=== PATIENT | female | born 1975 | race Caucasian/White ===

== ENCOUNTER 2022-09-17 08:12 | Outpatient (OUT) | payer OTHER, SELFPAY ==
--- NOTE | 2022-09-17 08:57 | XR_ITS ---
The [address] [address] Patient Name: YUMIKO MARCH MRN: [id number] date: 1975 Sex: F Assigned Patient Location: [facility] Current Patient Location: [facility] Accession/Order Number: [id number] Exam Date: 09/17/2022 09:20 Report Date: 09/17/2022 10:27 At the request of: MITRA VALDIVIA Procedure: XR chest 2V EXAM: XR chest 2V HISTORY: CAD, HISTORY OF [place] COMPARISON: None. TECHNIQUE: PA and lateral views of the chest. FINDINGS: The cardiomediastinal silhouette is normal. No focal consolidation is identified. There is no pneumothorax. No pleural effusion is noted. The osseous structures are intact. IMPRESSION: No acute cardiopulmonary process. Electronically authenticated by: BRAYDEN GRIFFITH Date: 09/17/2022 10:27
[2022-09-17 09:24] LABS: Basophils Absolute Auto 0.1 10^3/uL (0.0-0.1); Basophils Percent Auto 0.6 % (0.2-2.0); Eosinophils Absolute Auto 0.2 10^3/uL (0.0-0.7); Hematocrit 40.4 % (36.0-48.0); Hemoglobin 12.9 g/dL (12.0-16.0); Immature Granulocytes Abs Auto 0.03 10^3/uL (0.00-0.03); Immature Granulocytes Pct Auto 0.4 % (0.0-0.5); Lymphocytes Absolute Auto 1.5 10^3/uL (1.2-3.8); Lymphocytes Percent Auto 18.8 % (20.5-60.0); Mean Corpuscular HGB Conc 31.9 g/dL (29.9-35.2); Mean Corpuscular Hemoglobin 26.8 pg (26.7-34.0); Mean Corpuscular Volume 83.8 fL (81.0-99.0); Mean Platelet Volume 9.9 fL (9.5-13.5); Monocytes Absolute Auto 0.7 10^3/uL (0.3-0.8); Monocytes Percent Auto 8.9 % (1.7-12.0); Neutrophils Absolute Auto 5.5 10^3/uL (1.4-6.5); Neutrophils Percent Auto 69.3 % (43.0-75.0); Platelet Count 275 10^3/uL (150-450); Red Blood Count 4.82 10^6/uL (4.20-5.40); Red Cell Distribution Width 13.5 % (11.0-15.0)
[2022-09-17 09:31] LABS: Anion Gap 10.2; BUN Creatinine Ratio 28.6; Calcium 9.3 mg/dL (8.5-10.1); Carbon Dioxide 29.3 mmol/L (21.0-32.0); Chloride 103 mmol/L (98-107); Estimated GFR (African America >60 (>=60); Estimated GFR (Non-African Ame >60 (>=60); Glucose 89 mg/dL (74-106); Potassium 4.5 mmol/L (3.5-5.1); Sodium 138 mmol/L (136-145)
[2022-09-17 09:39] LABS: INR 0.97; Partial Thromboplastin Time 27.9 sec (22.3-36.2); Prothrombin Time 10.3 sec (9.0-11.6)
== END 2022-09-17 08:13 ==
PROVIDERS: Obstetrics & Gynecology; PCP Family Medicine
DX: Z01.812 Encounter for preprocedural laboratory examination (principal); Z01.811 Encounter for preprocedural respiratory examination; R87.611 Atypical squamous cells cannot exclude high grade squamous intraepithelial lesion on cytologic smear of cervix (ASC-H); R87.619 Unspecified abnormal cytological findings in specimens from cervix uteri; I25.10 Atherosclerotic heart disease of native coronary artery without angina pectoris; I25.2 Old myocardial infarction
CPT/HCPCS: 36415; 71046; 80048; 85025; 85610; 85730

== ENCOUNTER 2022-09-25 07:53 | Day surgery (SDC) | payer OTHER, SELFPAY ==
[2022-09-17 08:52] VITALS: BP 112/76; PULSE 64; RESP 14; TEMP 36.4; O2SAT 100; BMI 24.4
[2022-09-25] VITALS (8 sets, daily range): BP systolic 104–130; BP diastolic 53–88; PULSE 48–64; RESP 12–16; TEMP 36.1–36.3; O2SAT 96–100; BMI 23.9
[2022-09-25 08:05] LABS: Basophils Absolute Auto 0.1 10^3/uL (0.0-0.1); Basophils Percent Auto 0.7 % (0.2-2.0); Eosinophils Absolute Auto 0.2 10^3/uL (0.0-0.7); Eosinophils Percent Auto 3.4 % (0.9-7.0); Hematocrit 39.2 % (36.0-48.0); Hemoglobin 12.6 g/dL (12.0-16.0); Immature Granulocytes Abs Auto 0.02 10^3/uL (0.00-0.03); Immature Granulocytes Pct Auto 0.3 % (0.0-0.5); Lymphocytes Absolute Auto 1.6 10^3/uL (1.2-3.8); Lymphocytes Percent Auto 22.5 % (20.5-60.0); Mean Corpuscular HGB Conc 32.1 g/dL (29.9-35.2); Mean Corpuscular Volume 83.9 fL (81.0-99.0); Mean Platelet Volume 9.5 fL (9.5-13.5); Monocytes Absolute Auto 0.7 10^3/uL (0.3-0.8); Neutrophils Absolute Auto 4.4 10^3/uL (1.4-6.5); Neutrophils Percent Auto 63.1 % (43.0-75.0); Platelet Count 273 10^3/uL (150-450); Red Blood Count 4.67 10^6/uL (4.20-5.40); Red Cell Distribution Width 13.2 % (11.0-15.0)
[2022-09-25 08:38] LABS: HCG Quantitative <1 mIU/mL
[2022-09-25] MEDS: LACTATED RINGER'S SOLUTION 1,000 ML 50 ML IV (08:57)
[2022-09-25] MEDS: IODINE/POTASSIUM IODIDE 8 ML SOLUTION TOPICAL (11:06)
[2022-09-25] MEDS: FERRIC SUBSULFATE 8 ML SOLUTION TOPICAL (11:39)
--- NOTE | 2022-09-25 13:41 | OP_ITS ---
OPERATION DATE: ??09/25/2022 PROCEDURE:? LEEP procedure with top hat. PREOPERATIVE DIAGNOSIS:? High grade cervical dysplasia. POSTOPERATIVE DIAGNOSIS:? High grade cervical dysplasia. ANESTHESIA:? General. SURGEON:? Ronny Perez D.O. SETUP TECHNICIAN:? None. BLOOD LOSS:? 5 mL. URINE OUTPUT:? Yellow and clear. SPECIMEN:? Endo and ectocervical tissue. FINDINGS:? Dysplasia at the 3, 6, 9 and 10 o?clock positions. PROCEDURE:? Patient was taken back to the Operating Room where she was given general anesthesia without difficulty. She was then placed in the dorsal lithotomy position. She was then prepped and draped in the normal sterile fashion. A weighted speculum was placed into the patient's vagina. The anterior lip of the cervix was identified and grasped with a single-tooth tenaculum. The patient's cervix was then copiously irrigated using vinegar.? Then, a Lugol Solution was also placed onto the patient's cervix which demonstrated increased uptake of the Lugol solution at the 3, 6, 9 and 10 o?clock positions.? At that time, the LEEP portion of the procedure was performed, including both the 3, 6, 9 and 10 o?clock positions. The ectocervix was sent out to Pathology. Top hat was performed and the endocervical tissue was also sent to pathology. The patient's cervix was then coagulated using suction cautery. Excellent hemostasis was assured.? Monsel Solution was then placed onto the patient's cervix to help maintain adequate hemostasis. All instruments were removed from the patient's vagina. The anterior lip of the cervix demonstrated excellent hemostasis.? The patient tolerated the procedure well. Sponge, lap, and needle counts were correct x 2. The patient was taken to Recovery Room in stable condition.? Please note:? Top hat was performed.? MTDD
== END 2022-09-25 12:28 | disposition home or self-care (01) ==
PROVIDERS: PCP Family Medicine; Visit Provider Obstetrics & Gynecology
PROC: (CPT 57522; principal; 2022-09-25 09:40)
DX: D06.7 Carcinoma in situ of other parts of cervix (principal); Z79.82 Long term (current) use of aspirin; Z79.899 Other long term (current) drug therapy; I25.2 Old myocardial infarction; F17.210 Nicotine dependence, cigarettes, uncomplicated
CPT/HCPCS: 57522; 36415; 84702; 85025; 88307; 88341; 88342; J2704

== ENCOUNTER 2023-04-06 20:33 | Outpatient (REF) | payer OTHER, SELFPAY ==
[2023-04-09 13:09] LABS: Age Gdln ACOG Testing Note (.); HPV Aptima Negative (Negative); IGP, Aptima HPV, rfx 16/18,45 Note (.)
== END 2023-04-06 20:34 | disposition home or self-care (01) ==
LOC: LAB 20:33
PROVIDERS: PCP Family Medicine; Visit Provider Obstetrics & Gynecology
DX: R87.610 Atypical squamous cells of undetermined significance on cytologic smear of cervix (ASC-US) (principal)
CPT/HCPCS: 87624; G0145

== ENCOUNTER 2023-07-02 09:51 | Outpatient (OUT) | payer OTHER, SELFPAY ==
--- OUTSIDE RECORDS SUMMARY | 2023-07-02 09:55 | XMS_ITS | CCD ---
Author Organization [facility] Care Team Providers Care Public Address Technician Name Role Phone Maureen De Jesus MD Primary Care Provider FRANTZ MCLAIN Attending Unavailable MITRA PEREZ Attending Unavailable Maureen De Jesus MD Primary Care Provider [phone] KATE AMARAL Attending Unavailable MAUREEN DE JESUS Referring Unavailable MAUREEN DE JESUS Primary Care Unavailable Medications Current Medications Medication Drug Class(es) Dates Sig (Normalized) Sig (Original) aspirin 81 mg delayed release oral tablet (5 sources) Platelet Aggregation Inhibitor, Nonsteroidal Anti-inflammatory Drug take 1 tablet by mouth in the morning aspirin 81 mg Take 1 tablet (81 mg total) by mouth in the morning. 0 Active aspirin 81 MG ch ewable tablet 1 (one) time each day at the same time 0 Active atorvastatin 10 mg oral tablet (6 sources) HMG-CoA Reductase Inhibitor Start: 12-18-2022 take 1 tablet by mouth every other day atorvastatin (LIPITOR) 10 mg tablet Indications: Coronary artery disease involving [place] coronary artery of [place] heart without angina pectoris Take 1 tablet (10 mg total) by mouth every other day. 45 tablet 2 12/18/2022 Active B-complex with vitamin C tablet (3 sources) take 1 tablet by mouth in the morning B-complex with vitamin C tablet Take 1 tablet by mouth in the morning. 0 Active cholecalciferol 0.025 mg oral tablet (6 sources) Vitamin D take 1 tablet by mouth in the morning cholecalciferol, vitamin D3, (VITAMIN D3) 1,000 units tablet Take 1 tablet (1,000 Units total) by mouth in the morning. 0 Active glucosamine HCl/chondroitin lyle (GLUCOSAMINE-CHONDROIT IN ORAL) (3 sources) take 1 tablet by mouth in the morning glucosamine HCl/chondroitin lyle (GLUCOSAMINE-CHOND ROITIN ORAL) Take 1 tablet by mouth in the morning and 1 tablet before bedtime. 0 Active gotdq-bj-0-dha-epa-lashanda spho-ast 734-02-05-50 mg capsule (3 sources) take 3 capsules by mouth once daily rxvci-ca-9-dha-epa -phospho-ast 918-01-71-50 mg capsule Take by mouth daily. 0 Active 24 hr metoprolol succinate 25 mg extended release oral tablet (7 sources) beta-Adrenergic Javid Start: 06-16-2022 End: 05-25-2023 take 1 tablet by mouth once daily metoprolol succinate XL (TOPROL XL) 25 mg 24 hr tablet Take 1 tablet by mouth once daily 90 tablet 0 05/25/2023 Active take 1 tablet by faheem th every twenty-four hours in the morning metoprolol succinate XL (Toprol-XL) 25 M G 24 hr tablet Take 25 mg by mouth in the morning. 0 Active nitroglycerin 0.4 mg sublingual tablet (3 sources) Nitrate Vasodilator nitroglyceri n (NITROSTAT) 0.[address] 1 tablet (0.4 mg total) under the tongue every 5 (five) minutes as needed for chest pain. 0 Active vitamin e d-alpha 400 unt oral capsule (3 sources) take 1 capsule by mouth once daily alpha tocopherol (Vitamin E) 400 units capsule Take 400 Units by mouth 1 (one) time each day at the same time. 0 Active Zinc (3 sources) take 1 tablet by mouth in the morning ZINC ORAL Take 1 tablet by mouth in the morning. 0 Active Problems Active Problems Problem Classification Problem Date Documented Date Episodic/Chronic Acute myocardial infarction (5 sources) Myocardial infarction; Translations: [Non-ST elevation (NSTEMI) myocardial infarction] Onset: 09-18-2016 05-24-2023 Chronic Anxiety disorders (2 sources) Anxiety; Translations: [Anxiety disorder, unspecified] Onset: 05-24-2023 05-24-2023 Chronic Cancer of cervix (2 sources) Carcinoma in situ of uterine cervix; Translations: [Carcinoma in situ of cervix, unspecified] Onset: 05-24-2023 05-24-2023 Episodic Complication of device; implant or graft (2 sources) Arteriosclerosis of coronary artery bypass graft; Translations: [Atherosclerosis of coronary artery bypass graft(s), unspecified, with unspecified angina pectoris] Onset: 05-24-2023 05-24-2023 Chronic Coronary atherosclerosis and other heart disease (6 sources) Coronary atherosclerosis; Translations: [Atherosclerotic heart disease of [place] coronary artery with unspecified angina pectoris] Onset: 02-23-2019 02-23-2019 Chronic Disorders of lipid metabolism (8 sources) Hyperlipidemia; Translations: [Other hyperlipidemia] Onset: 11-19-2016 05-24-2023 Chronic Other upper respiratory infections (2 sources) Viral upper respiratory tract infection; Translations: [Acute upper respiratory infection, unspecified] 05-24-2023 Episodic Viral infection (2 sources) Condyloma acuminatum of the anogenital region; Translations: [Anogenital (venereal) warts] Onset: 05-24-2023 05-24-2023 Episodic Past or Other Problems Problem Classification Problem Date Documented Da te Episodic/Chronic Nonspecific chest pain (3 sources) Chest pain; Translations: [Chest pain, unspecified] Onset: 09-18-2016 Resolved: 02-23-2019 02-23-2019 Episodic Other screening for suspected conditions (not mental disorders or infectious disease) (5 sources) Mammography abnormal; Translations: [Other abnormal and inconclusive findings on diagnostic imaging of breast] Onset: 09-15-2016 Resolved: 02-23-2019 05-24-2023 Episodic Substance-related disorders (3 sources) Nicotine dependence; Translations: [Nicotine dependence, cigarettes, uncomplicated] Onset: 09-24-2016 Resolved: 02-23-2019 02-23-2019 Chronic Results Test Name Value Interpretation Reference Range Facil ity PO[facility] W/KERA, BILATERAL*on 06-08-2022 SCREENING MAMMOGRAM W/KERA, BILATERAL* COMPARISON: Dating back to February 04, 2021, May 14 and 2020. TECHNIQUE: 2D and 3D Tomosynthesis of the right and left breasts was performed. FINDINGS: Breast composition demonstrates heterogeneously dense parenchyma. Typically benign calcifications. Bilateral periareolar biopsy clips. No suspicious microcalcifications, dominant mass lesions, or distortion is present. IMPRESSION: BI-RADS 2- Benign Mammogram Board Certified Radiologist. Accredited by the ACR and FDA. MAMMOGRAPHY IS VERY IMPORTANT TO YOUR HEALTH. THE CURRENT [place] [employer] GUIDELINES RECOMMENDS ANNUAL MAMMOGRAPHY BEGINNING AT AGE 39 THIS FACILITY USES A REMINDER SYSTEM TO ENSURE ALL PATIENTS RECEIVE REMINDER NOTIFICATIONS AT THE APPROPRIATE TIME BASED ON THE RECOMMENDATIONS OF THIS EXAM. Report reported and signed by Stuart Rivera on 06/12/2022 1406 Normal [facility] Oxygen Plant Operator Vital Signs Date Time Vital Sign Value Performing Clinician Facility 06-29-2023 11:01-0400 Body height 167.6 cm Kate Amaral APRN-SAFETY GLASS INSTALLER Work Phone: [facility] 06-29-2023 11:01-0400 Body mass index (BMI) [Ratio] 23.4 kg/m2 Katerodrigo Amaral SYSTEMS ANALYST ENGINEER-SAFETY GLASS INSTALLER Work Phone: [facility] 06-29-2023 11:01-0400 Body weight 65.77 kg Kate Amaral SYSTEMS ANALYST ENGINEER-SAFETY GLASS INSTALLER Work Phone: [facility] 06-29-2023 11:01-0400 Diastolic blood pressure 68 mm[Hg] Kate Amaral APRN-SAFETY GLASS INSTALLER Work Phone: [facility] 06-29-2023 11:01-0400 Heart rate 65 /min Katerodrigo Amaral SYSTEMS ANALYST ENGINEER-SAFETY GLASS INSTALLER Work Phone: [facility] 06-29-2023 11:01-0400 SaO2% (BldA) [Mass fraction] 100 % Kate Amaral SYSTEMS ANALYST ENGINEER-SAFETY GLASS INSTALLER Work Phone: [facility] 06-29-2023 11:01-0400 Systolic blood pressure 100 mm[Hg] Kate Amaral APRN-SAFETY GLASS INSTALLER Work Phone: [facility] 05-24-2023 13:10-0500 Body height 167.6 cm Frantz Mclain HAND CUTTER Work Phone: [facility] 05-24-2023 13:10-0500 Body mass index (BMI) [Ratio] 22.92 kg/m2 Frantz Mclain HAND CUTTER Work Phone: [facility] 05-24-2023 13:10-0500 Body temperature 98.49 [degF] Frantz Mclain HAND CUTTER Work Phone: [facility] 05-24-2023 13:10-0500 Body weight 64.41 kg Frantz Mclain HAND CUTTER Work Phone: [facility] 05-24-2023 13:10-0500 Diastolic blood pressure 70 mm[Hg] Frantz Mclain HAND CUTTER Work Phone: [facility] 05-24-2023 13:10-0500 Heart rate 78 /min Frantz Mclain HAND CUTTER Work Phone: [facility] 05-24-2023 13:10-0500 SaO2% (BldA) [Mass fraction] 99 % Frantz Mclain HAND CUTTER Work Phone: [facility] 05-24-2023 13:10-0500 Systolic blood pressure 110 mm[Hg] Frantz Mclain HAND CUTTER Work Phone: [facility] Healthcare Encounters Encounter Date Encounter Type Care Provider Facility Start: 06-29-2023 End: 06-29-2023 ambulatory [facility] Start: 06-29-2023 End: 06-29-2023 Office outpatient visit 25 minutes [facility] SYSTEMS ANALYST ENGINEER-SAFETY GLASS INSTALLER Work Phone: [facility] Comment on above: Atherosclerosis of n ative coronary artery of [place] heart with angina pectoris ([facility]) (Primary Dx); Mixed hyperlipidemia Start: 06-28-2023 Telephone encounter Izzy Galvez MA [facility] Comment on above: Appointment Start: 05-24-2023 End: 05-24-2023 ambulatory FRANTZ MCLAIN Not Available Start: 05-24-2023 Bamboo flowsheet Frantz Mclain HAND CUTTER Work Phone: [facility] Start: 05-24-2023 Bamboo flowsheet Frantz Mclain HAND CUTTER Work Phone: [facility] Start: 05-24-2023 Refill Rosy lopez SYSTEMS ANALYST ENGINEER-SAFETY GLASS INSTALLER Work Phone: [facility] Comment on above: Med Refill Start: 05-24-2023 End: 05-24-2023 Office outpatient visit 15 minutes Frantz Mclain HAND CUTTER Work Phone: [facility] Comment on above: Viral URI (Primary D x) Start: 04-06-2023 End: 04-06-2023 ambulatory MITRA PEREZ Not Available Procedures Date Procedure Procedure Detail Performing Clinician Start: 06-29-2023 Ecg routine ecg w/le ast 12 lds w/i&r Kate Amaral SYSTEMS ANALYST ENGINEER-SAFETY GLASS INSTALLER Work Phone: Start: 06-29-2023 Follow-up visit Follow-up KATE AMARAL Start: 02-02-2023 Microscopic observat ion [Identifier] in Cervix by Cyto stain Frantz Mclain HAND CUTTER Work Phone: Start: 06-08-2022 Mammography Frantz Petrona barry HAND CUTTER Work Phone: Plan of Treatment Date Care Activity Detail Author Start: 02-28-2030 DTaP,Tdap and Td Vaccines (8 - Td or Tdap) DTaP,Tdap and Td Vaccines (8 - Td or Tdap) [facility] Start: 02-03-2028 Screening for malignant neoplasm of cervix [facility] Start: 02-02-2026 Screening for malignant neoplasm of cervix Pap Smear [facility] Start: 06-28-2024 Adult BMI Screening Adult BMI Screen ing [facility] Start: 06-28-2024 Tobacco Screening Tobacco Screening [facility] Start: 09-29-2023 End: 06-28-2024 Lipid panel Lipid panel Lab Routine Atherosclerosis of [place] coronary artery of [place] heart with angina pectoris ([facility]) Mixed hyperlipidemia Expected: 09/29/2023 (Approximate), Expires: 06/28/2024 [employer] Work Phone: Comment on above: Expected: 09/29/2023 (Approximate), Expires: 06/28/2024 Start: 06-29-2023 End: 06-29-2023 Patient encounter procedure 06/29/2023 11:00 AM EDT Office Visit [facility] [address] [place] [address] [address] [place] [address] Kate Amaral, SYSTEMS ANALYST ENGINEER-SAFETY GLASS INSTALLER [address] [place] [address] [facility] Start: 06-17-2023 Adult BMI Screening Adult BMI Screen ing [facility] Start: 06-17-2023 Tobacco Screening Tobacco Screening [facility] Start: 06-15-2023 End: 06-15-2023 Patient encounter procedure 06/15/2023 8:40 AM EST Consult [facility] [address] [place] [id number] Mitra Perez, DO [address] [place] [address] [facility] Start: 06-08-2023 Screening for malignant neoplasm of breast Mammogram [facility] Start: 05-24-2023 End: 05-24-2023 Patient encounter procedure 05/24/2023 1:30 PM EST Office Visit [facility] [address] [place] [phone] Frantz Mclain NP [address] [place] [address] Arrived [facility] Comment on above: Arrived Start: 12-11-2022 COVID-19 Vaccine ( season) COVID-19 Vaccine ( season) [facility] Start: 12-11-2022 Influenza vaccination Influenza Vacc ine [facility] Start: 1995 Screening for malignant neoplasm of cervix Pap Smear [facility] Start: 1986 Depression Screening Depression Scre ening [facility] Start: 1974 Screening for malignant neoplasm of colon [facility] Immunizations Immunization Date Immunization Notes Care Provider Fa cility 04-16-2023 zoster vaccine recombinant Frantz Mclain HAND CUTTER Work Phone: [facility] 01-17-2023 Pneumococcal Conjuga te PCV 20 Frantz Mclain HAND CUTTER Work Phone: [facility] 01-17-2023 zoster vaccine recombinant Frantz Mclain HAND CUTTER Work Phone: [facility] 12-11-2022 influenza, injectabl e, quadrivalent, preservative free Frantz Kampfer HAND CUTTER Work Phone: [facility] 01-30-2022 influenza, injectabl e, quadrivalent, contains preservative Frantz Kampfer HAND CUTTER Work Phone: [facility] 01-30-2022 influenza virus vaccine, unspecified formulation Rosy Servin SYSTEMS ANALYST ENGINEER-SAFETY GLASS INSTALLER Work Phone: [facility] 01-05-2021 influenza, injectabl e, quadrivalent, preservative free Frantz Kampfer HAND CUTTER Work Phone: [facility] 02-29-2020 tetanus toxoid, redu bassam diphtheria toxoid, and acellular pertussis vaccine, adsorbed Frantz Kampfer HAND CUTTER Work Phone: [facility] 01-25-2020 influenza, injectabl e, quadrivalent, preservative free Frantz Kampfer HAND CUTTER Work Phone: [facility] 02-03-2019 influenza, injectabl e, quadrivalent, contains preservative Frantz Kampfer HAND CUTTER Work Phone: [facility] 01-20-2012 tetanus toxoid, redu bassam diphtheria toxoid, and acellular pertussis vaccine, adsorbed Frantz Kampfer HAND CUTTER Work Phone: [facility] 11-19-2006 hepatitis B vaccine, adult dosage Frantz Kampfer HAND CUTTER Work Phone: [facility] 09-21-2006 hepatitis B vaccine, adult dosage Frantz Kampfer HAND CUTTER Work Phone: [facility] 07-29-2006 hepatitis B vaccine, adult dosage Frantz Kampfer HAND CUTTER Work Phone: [facility] 07-29-2006 measles, mumps and rubella virus vaccine Frantz Kampfer HAND CUTTER Work Phone: [facility] 07-29-2006 tetanus toxoid, adsorbed Frantz Kampfer HAND CUTTER Work Phone: [facility] 12-21-1978 diphtheria, tetanus toxoids and acellular pertussis vaccine, unspecified formulation Frantz Kampfer HAND CUTTER Work Phone: [facility] 10-23-1975 diphtheria, tetanus toxoids and acellular pertussis vaccine, unspecified formulation Frantz Kampfer HAND CUTTER Work Phone: [facility] 10-23-1975 measles and rubella virus vaccine Frantz Kampfer HAND CUTTER Work Phone: [facility] 10-23-1975 poliovirus vaccine, unspecified formulation Frantz Kampfer HAND CUTTER Work Phone: [facility] 05-21-1975 diphtheria, tetanus toxoids and acellular pertussis vaccine, unspecified formulation Frantz Kampfer HAND CUTTER Work Phone: [facility] 05-21-1975 poliovirus vaccine, unspecified formulation Frantz Kampfer HAND CUTTER Work Phone: [facility] 1974 diphtheria, tetanus toxoids and acellular pertussis vaccine, unspecified formulation Frantz Kampfer HAND CUTTER Work Phone: [facility] 1974 poliovirus vaccine, unspecified formulation Frantz Kampfer HAND CUTTER Work Phone: [facility] 1974 diphtheria, tetanus toxoids and acellular pertussis vaccine, unspecified formulation Frantz Kampfer HAND CUTTER Work Phone: [facility] 1974 poliovirus vaccine, unspecified formulation Frantzcarlos Slaterpfer HAND CUTTER Work Phone: [facility] Payers Date Payer Category Payer Managed Care HMO (unspecified) [employer] HMO [employer] HMO [id number] 2020-Present [address] [place] [address] HMO [id number] 2019 Unknown [id number] 2019 Unknown [employer] HMO/FLEX/EMPLOYER SELECT [id number] 2019-Present [phone] [address] [place] [address] [id number] 1974 Unknown [id number] 1974 Unknown [id number] 1974 Unknown [id number] Social History Date Type Detail Facility Start: 06-16-2022 End: 02-01-2023 Tobacco smoking status NHIS Ex-smoker [facility] History of tobacco use Current smoker [facility] History of tobacco use Cigarette Smoker [facility] Start: 06-16-2022 End: 02-01-2023 Tobacco use and exposure Smokeless tobacco non-user [facility] Start: 05-06-2023 End: 05-24-2023 Alcohol intake Lifetime non-drinker (finding) [facility] Start: 04-23-2020 End: 04-06-2023 History of Social function [facility] Start: 04-23-2020 End: 04-06-2023 Tobacco use panel [facility] Start: 02-01-2023 Alcohol Comment caffeine: 2-3 cups per day coffee, soda [facility] Start: 1975 Sex Assigned At Not on file N [facility] Start: 06-16-2022 End: 06-29-2023 Alcohol intake Current non-drinker of alcohol (finding) [facility] Childcare Unknown [facility] Clinical Notes 05-24-2023 to 06-29-2023 Kate Amaral, [facility] - 06/29/2023 11:00 AM EDTTelephone Encounter - Izzy Bradford, [facility] - 06/28/2023 11:57 AM EDTTelephone Encounter - Izzy Bradford [facility] - 06/28/2023 11:57 AM EDT Note Date & Type Note Facility 06-29-2023 History of Presen t illness Narrative Yumiko March Date of visit: 06/29/2023 Date of : 1975 Age: 48 y.o. Patient Active Problem List Diagnosis Atherosclerotic heart disease of [place] coronary artery with angina pectoris (CMS-HCC) Mixed hyperlipidemia Non-ST elevation (NSTEMI) myocardial infarction (CMS-HCC) No Known Allergies Current Outpatient Medications Medication Sig Dispense Refill aspirin 81 mg Take 1 tablet (81 mg total) by mouth in the morning. atorvastatin (LIPITOR) 10 mg tablet Take 1 tablet (10 mg total) by mouth every other day. 45 tablet 2 B-complex with vitamin C tablet Take 1 tablet by mouth in the morning. cholecalciferol, vitamin D3, (VITAMIN D3) 1,000 units tablet Take 1 tablet (1,000 Units total) by mouth in the morning. glucosamine HCl/chondroitin lyle (GLUCOSAMINE-CHONDROITIN ORAL) Take 1 tablet by mouth in the morning and 1 tablet before bedtime. fscpk-bb-0-boa-jrk-uhrmzez-ast 314-17-83-50 mg capsule Take by mouth daily. metoprolol succinate XL (TOPROL XL) 25 mg 24 hr tablet Take 1 tablet by mouth once daily 90 tablet 0 nitroglycerin (NITROSTAT) 0.[address] 1 tablet (0.4 mg total) under the tongue every 5 (five) minutes as needed for chest pain. ZINC ORAL Take 1 tablet by mouth in the morning. No current facility-administered medications for this visit. Chief Complaint Patient presents with Follow-up Coronary Artery Disease Hyperlipidemia History of Present Illness 48-year-old female presents today for annual visit. Last seen on 06/16. Note from previous encounter reviewed. He was history of NSTEMI, single-vessel ASCVD with occluded distal LAD 2016, hyperlipidemia. Last lipid panel from September of 2022 with LDL of 28. At today's visit she needs preoperative clearance for hysterectomy. She has no new anginal complaints. No chest pains, shortness of breath, lightheadedness, dizziness, syncope, presyncope. EKG in office today unchanged from previous study. Nonischemic. 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 Easily she is greater than 4 METS activity. Tolerating her medications. Past Medical History: Diagnosis Date CAD (coronary artery disease) No data recorded No data recorded No data recorded Past Surgical History: Procedure Laterality Date BREAST BIOPSY Right 06/05/2020 stereotactic BREAST BIOPSY Left 06/05/2020 stereotactic CARDIAC CATHETERIZATION 2016 TONSILLECTOMY TUBAL LIGATION Family History Problem Relation Age of Onset Hypertension Mother Hypertension Father Heart attack Father Breast cancer Neg Hx Social History Socioeconomic History Marital status: Spouse name: Not on file Number of children: Not on file Years of education: Not on file Highest education level: Not on file Occupational History Not on file Tobacco Use Smoking status: Former Packs/day: 0 Types: Cigarettes Smokeless tobacco: Never Vaping Use Vaping Use: Never used Substance and Sexual Activity Alcohol use: No Drug use: No Sexual activity: Yes Other Topics Concern Caffeine Use Yes Comment: a few cups a day Social History Narrative Not on file Social Determinants of Health Financial Resource Strain: Not on file Food Insecurity: No Food Insecurity (06/29/2023) Hunger Screening Food Insecurity - Worry: Never True Food Insecurity - Inability: Never True Transportation Needs: Not on file Physical Activity: Not on file Stress: Not on file Social Connections: Not on file Interpersonal Safety: Not on file Housing Instability: Not on file Review of Systems Review of Systems Constitutional: Negative for chills, fever, weight gain and weight loss. HENT: Negative for nosebleeds. Eyes: Negative for blurred vision and double vision. Vascular: Negative for asymmetric leg edema, claudication, lower extremity wounds or ulcers and varicose veins. Respiratory: Negative for cough, shortness of breath and wheezing. Hematologic/Lymphatic: Negative for bleeding problem. Does not bruise/bleed easily. Skin: Negative for color change and rash. Musculoskeletal: Negative for joint swelling and muscle weakness. Gastrointestinal: Negative for change in bowel habit and hematochezia. Genitourinary: Negative for hematuria. Neurological: Negative for dizziness, headaches, light-headedness, loss of balance, numbness and tremors. Psychiatric/Behavioral: The patient is not nervous/anxious. Allergic/Immunologic: Negative for environmental allergies. CARDIOVASCULAR: Please review HPI. Physical Examination General appearance: Alert, oriented and cooperative. In no acute distress. Skin: Warm and dry to touch. Neck: No JVD, No carotid bruit. Neck supple, trachea midline. Respiratory: Clear to auscultation bilaterally, no use of accessory muscles. Cardiovascular: RRR with normal S1 and S2 with no murmurs. Musculoskeletal: No peripheral edema. Neurologic: Oriented to time, person and place, affect appropriate. No focal/major motor defects noted. Psychiatric: Appropriate mood, memory and judgement. VITAL SIGNS: BP 100/68 (BP Site: Left Arm, BP Postition: Sitting, BP CUFF SIZE: M (9-13 inches)) Pulse 65 Ht 167.6 cm (5' 6 ) Wt 65.8 kg (145 lb) SpO2 100% BMI 23.40 kg/m No orders of the defined types were placed in this encounter. There are no discontinued medications. IMPRESSIONS/PLAN 1. Atherosclerosis of [place] coronary artery of [place] heart with angina pectoris ([facility]) - POCT EKG / nonischemic - Lipid panel; Future -preserved LVEF -no anginal complaints. Greater than 4 Mets activity. 2. Mixed hyperlipidemia - Lipid panel; Future -LDL well at goal from September of last year. Repeat lipid panel in September of this year 3. Preoperative clearance -fairly low risk for upcoming hysterectomy. Cleared. Can hold aspirin 5-7 days prior. Restart afterwards when cleared to do so Follow-up in 1 year. Seen today while Dr. Plummer was in the office and readily available TODAYS ORDERS Orders Placed This Encounter Procedures Lipid panel POCT EKG FOLLOW UP Return in about 1 year (around 06/28/2024) for Next scheduled follow up. PCP: Maureen De Jesus MD Referring Physician: Maureen De Jesus MD [address] [place] [address] FRANCINE Lacy 06/29/23 1123 documented in this encounter [facility] 06-28-2023 Miscellaneous Notes Formattin g of this note might be different from the original. Called patient to remind them to bring their most current copy of their medication list with them to their appt. Patient verbalizes understanding. documented in this encounter [facility] 06-28-2023 Telephone encount er Note Called patient to remind them to bring their most current copy of their medication list with them to their appt. Patient verbalizes understanding. [facility] 05-24-2023 History of Presen t illness Narrative Yumiko March is a 48 y.o. female presents with chief complaint of Sore Throat HPI: Sore Throat Patient complains of sore throat. Associated symptoms include dry cough, pain while swallowing, post nasal drip, sinus and nasal congestion, sneezing, sore throat, and swollen glands. Onset of symptoms was 4 days ago, and have been gradually worsening since that time. She is drinking plenty of fluids. She has had recent close exposure to someone with proven streptococcal pharyngitis. She is not taking anything OTC. Sore Throat SUBJECTIVE: MEDICATIONS: Current Outpatient Medications Medication Instructions alpha tocopherol (VITAMIN E) 400 Units, Oral, Every 24 hours atorvastatin (LIPITOR) 10 mg, Oral, Every other day cholecalciferol (VITAMIN D-3) 1,000 Units, Oral, Daily RT metoprolol succinate XL (TOPROL-XL) 25 mg, Oral, Daily REVIEW OF SYMPTOMS: Review of Systems HENT: Positive for sore throat. OBJECTIVE: Visit Vitals BP 110/70 (BP Location: Left arm, Patient Position: Sitting, BP Cuff Size: Adult) Pulse 78 Temp 98.5 F (Tympanic) Ht 5' 6 Wt 142 lb SpO2 99% BMI 22.92 kg/m OB Status Having periods Smoking Status Former BSA 1.73 m Physical Exam Vitals reviewed. Constitutional: Appearance: Normal appearance. HENT: Head: Normocephalic and atraumatic. Ears: Comments: B/L TM: dull Nose: Mucosal edema, congestion and rhinorrhea present. Rhinorrhea is clear. Mouth/Throat: Mouth: Mucous membranes are moist. Comments: PND Eyes: Pupils: Pupils are equal, round, and reactive to light. Cardiovascular: Rate and Rhythm: Normal rate and regular rhythm. Pulses: Normal pulses. Heart sounds: Normal heart sounds. Pulmonary: Effort: Pulmonary effort is normal. Breath sounds: Normal breath sounds. Musculoskeletal: Cervical back: Normal range of motion and neck supple. Lymphadenopathy: Cervical: No cervical adenopathy. Skin: General: Skin is warm and dry. Capillary Refill: Capillary refill takes less than 2 seconds. Findings: No rash. Neurological: General: No focal deficit present. Mental Status: She is alert and oriented to person, place, and time. ASSESSMENT AND PLAN: Assessment/Plan Diagnoses and all orders for this visit: Viral URI -Declines covid/flu testing. Viral in nature, will need to run its course. Educated patient viral infections such as colds/flus do not respond to abx and typically do not begin to improve until 7-10 days into the illness. Discussed symptomatic treatment with patient. Humidifier at bedside to moisten area. Push fluids. Rest. Good handwashing. Follow up if symptoms do not improve. To ER for markedly worsening symptoms. documented in this encounter [facility] 05-24-2023 Miscellaneous Notes Formattin g of this note might be different from the original. Please sign and route. Thank you CRISTAL 06/16/22 Pt will need annual appointment please. Letter mailed. documented in this encounter [facility] 05-24-2023 Telephone encount er Note Please sign and route. Thank you CRISTAL 06/16/22 Pt will need annual appointment please. Letter mailed. [facility] Evaluation note Diagnosis Viral URI- Primary Acute upper respiratory infections of unspecified site [facility] Diagnosis Atherosclerosis of [place] coronary artery of [place] heart with angina pectoris ([facility])- Primary Mixed hyperlipidemia documented in this encounter [facility] Network18 SystemInstructionsNot on filedocumented in this encounter [facility] Network18 SystemInstructionsNot on filedocumented in this encounter [facility] Network18 SystemInstructionsNot on filedocumented in this encounter [facility] Summary Purpose Family History No Family History Records FoundNo Family History Records FoundNo Family History Records Found Advance Directives No Advanced Directives Records FoundLatest Code Status on File Code Status Date Activated Date Inactivated Comments Full Code 09/15/2016 4:44 PM 09/16/2016 6:41 PM Additional Source Comments INFORMATION SOURCE (unrecogn ized section and content) DATE CREATED AUTHOR 06/13/2022 [facility] dical Specialist DATE CREATED AUTHOR AUTHOR'S ORGANIZ ATION 05/25/2023 [facility] dical Specialists EPIC DATE CREATED AUTHOR AUTHOR'S ORGANIZ ATION 06/30/2023 [facility] Care Teams (unrecognized sec tion and content) Public Address Technician Relationship Specialty Start Date End Date Maureen De Jesus MD [address] [place] [address] PCP - General Family Medicine 08/18/22 Public Address Technician Relationship Specialty Start Date End Date Maureen De Jesus MD [address] [place] [address] PCP - General Family Medicine 08/18/22 Public Address Technician Relationship Specialty Start Date End Date Maureen De Jesus MD [address] [place] [address] PCP - General Family Medicine 09/15/16 Public Address Technician Relationship Specialty Start Date End Date Maureen De Jesus MD [address] [place] [address] PCP - General Family Medicine 09/15/16 Reason for Visit (unrecogniz ed section and content) Reason Comments Sore Throat Reason Comments Med Refill Reason Onset Date Comments Appointment 06/28/2023 Reason Comments Follow-up Coronary Artery Disease Hyperlipidemia FOR RECORDS PERTAINING TO PATIENTS WHO ARE OR HAVE BEEN ENROLLED IN A CHEMICAL DEPENDENCY/SUBSTANCEABUSE PROGRAM, SOME INFORMATION MAY BE OMITTED. This clinical summary was aggregated from multiple sources. Caution should be exercised in using it in the provision of clinical care. This summary normalizes information from multiple sources, and as a consequence, information in this document may materially change the coding, format and clinical context of patient data. In addition, data may be omitted in some cases. CLINICAL DECISIONS SHOULD BE BASED ON THE PRIMARY CLINICAL RECORDS. [facility] [employer] [facility]. provides no warranty or guarantee of the accuracy or completeness of information in this document.
[2023-07-02 11:09] LABS: Alanine Aminotransferase 27 U/L (14-59); Albumin Globulin Ratio 1.2; Albumin Level 3.7 g/dL (3.4-5.0); Alkaline Phosphatase 73 U/L (46-116); Anion Gap 14.9; Aspartate Amino Transferase 16 U/L (15-37); BUN Creatinine Ratio 20.6; Bilirubin Direct 0.1 mg/dL (0.0-0.2); Bilirubin Total 0.5 mg/dL (0.2-1.0); Calcium 8.7 mg/dL (8.5-10.1); Carbon Dioxide 27.4 mmol/L (21.0-32.0); Chloride 103 mmol/L (98-107); Estimated GFR (African America >60 (>=60); Estimated GFR (Non-African Ame >60 (>=60); Globulin 3.2 g/dL; Glucose 87 mg/dL (74-106); Potassium 4.3 mmol/L (3.5-5.1); Sodium 141 mmol/L (136-145); Total Protein 6.9 g/dL (6.4-8.2)
[2023-07-02 11:16] LABS: Basophils Absolute Auto 0.1 10^3/uL (0.0-0.1); Basophils Percent Auto 0.6 % (0.2-2.0); Eosinophils Absolute Auto 0.1 10^3/uL (0.0-0.7); Eosinophils Percent Auto 1.1 % (0.9-7.0); Hematocrit 39.5 % (36.0-48.0); Hemoglobin 12.4 g/dL (12.0-16.0); Immature Granulocytes Abs Auto 0.03 10^3/uL (0.00-0.03); Immature Granulocytes Pct Auto 0.3 % (0.0-0.5); Lymphocytes Absolute Auto 1.7 10^3/uL (1.2-3.8); Lymphocytes Percent Auto 16.5 % (20.5-60.0); Mean Corpuscular HGB Conc 31.4 g/dL (29.9-35.2); Mean Corpuscular Hemoglobin 27.1 pg (26.7-34.0); Mean Corpuscular Volume 86.2 fL (81.0-99.0); Mean Platelet Volume 10.4 fL (9.5-13.5); Neutrophils Absolute Auto 7.6 10^3/uL (1.4-6.5); Neutrophils Percent Auto 72.5 % (43.0-75.0); Platelet Count 293 10^3/uL (150-450); Red Blood Count 4.58 10^6/uL (4.20-5.40); Red Cell Distribution Width 13.7 % (11.0-15.0); White Blood Count 10.5 10^3/uL (4.0-11.0)
[2023-07-02 11:34] LABS: INR 0.99; Partial Thromboplastin Time 29.1 sec (22.3-36.2); Prothrombin Time 10.5 sec (9.0-11.6)
== END 2023-07-02 09:52 | disposition home or self-care (01) ==
LOC: PST 09:52
PROVIDERS: PCP Family Medicine; Visit Provider Obstetrics & Gynecology
DX: Z01.812 Encounter for preprocedural laboratory examination (principal); N92.0 Excessive and frequent menstruation with regular cycle; R10.2 Pelvic and perineal pain; N94.6 Dysmenorrhea, unspecified; N94.10 Unspecified dyspareunia
CPT/HCPCS: 36415; 80048; 80076; 85025; 85610; 85730

== ENCOUNTER 2023-07-12 14:26 | Outpatient (OUT) | payer OTHER, SELFPAY | END 2023-07-12 14:27 | disposition home or self-care (01) | LOC: LAB 14:26 | PROVIDERS: PCP Family Medicine; Visit Provider Obstetrics & Gynecology | DX: Z01.812 Encounter for preprocedural laboratory examination (principal); N92.0 Excessive and frequent menstruation with regular cycle; R10.2 Pelvic and perineal pain; N94.6 Dysmenorrhea, unspecified; N94.10 Unspecified dyspareunia | CPT/HCPCS: 36415; 86850; 86900; 86901 ==

== ENCOUNTER 2023-07-15 11:13 | Day surgery (SDC) | payer OTHER, SELFPAY ==
[2023-07-02 10:24] VITALS: BP 105/65; PULSE 79; RESP 16; TEMP 36.2; O2SAT 100; BMI 23.4
[2023-07-15] VITALS (24 sets, daily range): BP systolic 106–133; BP diastolic 60–80; PULSE 57–80; TEMP 35.9–36.7; O2SAT 85–99; BMI 22.8
--- OUTSIDE RECORDS SUMMARY | 2023-07-15 11:17 | XMS_ITS | CCD ---
Author Organization [facility] Care Team Providers Care Spreader Operator Automatic Name Role Phone Maureen De Jesus MD Primary Care Provider FRANTZ MCLAIN Attending Unavailable MITRA PEREZ Attending Unavailable Maureen De Jesus MD Primary Care Provider KATE AMARAL Attending Unavailable MAUREEN DE JESUS [...] mg tablet Indications: Coronary artery disease involving sioux coronary artery of sioux heart without angina pectoris Take 1 tablet [...] and 1 tablet before bedtime. 0 Active hdlky-td-8-dha-epa-lashanda spho-ast [id number] mg capsule (3 sources) take 3 capsules by mouth once daily zokcl-nf-2-dha-epa -phospho-ast [id number] mg capsule Take by mouth daily. 0 [...] Coronary atherosclerosis; Translations: [Atherosclerotic heart disease of sioux coronary artery with unspecified angina pectoris] Onset: [...] Reference Range Facil ity POCT EKGon 06-29-2023 [facility] SCREEN[facility] MAMMOGRAM W/KERA, BILATERAL*on 06-08-2022 SCREENING [...] VERY IMPORTANT TO YOUR HEALTH. THE CURRENT [place] GUIDELINES RECOMMENDS ANNUAL MAMMOGRAPHY BEGINNING AT AGE 39 THIS FACILITY USES A REMINDER SYSTEM TO ENSURE ALL PATIENTS RECEIVE REMINDER NOTIFICATIONS AT THE APPROPRIATE TIME BASED ON THE RECOMMENDATIONS OF THIS EXAM. Report reported and signed by Stuart Rivera on 06/12/2022 1406 Normal [facility] Swing Saw Operator Vital Signs Date Time Vital Sign Value Performing Clinician Facility 06-29-2023 11:01-0400 Body height 167.6 cm Kate Amaral APRN-SUPERVISOR [employer] Work Phone: [facility] 06-29-2023 11:01-0400 Body mass index (BMI) [Ratio] 23.4 kg/m2 Katerodrigo Amaral PROBATION OFFICER-SUPERVISOR [employer] Work Phone: [facility] 06-29-2023 11:01-0400 Body weight 65.77 kg Kate Amaral PROBATION OFFICER-SUPERVISOR [employer] Work Phone: [facility] 06-29-2023 11:01-0400 Diastolic blood pressure 68 mm[Hg] Kate Amaral APRN-SUPERVISOR [employer] Work Phone: [facility] 06-29-2023 11:01-0400 Heart rate 65 /min Katerodrigo Amaral PROBATION OFFICER-SUPERVISOR [employer] Work Phone: [facility] 06-29-2023 11:01-0400 SaO2% (BldA) [Mass fraction] 100 % Kate Amaral PROBATION OFFICER-SUPERVISOR [employer] Work Phone: [facility] 06-29-2023 11:01-0400 Systolic blood pressure 100 mm[Hg] Kate Amaral APRN-SUPERVISOR [employer] Work Phone: [facility] 05-24-2023 13:10-0500 Body height 167.6 cm Frantz Mclain SWING SAW OPERATOR Work Phone: [facility] 05-24-2023 13:10-0500 Body mass index (BMI) [Ratio] 22.92 kg/m2 Frantz Mclain SWING SAW OPERATOR Work Phone: [facility] 05-24-2023 13:10-0500 Body temperature 98.49 [degF] Frantz Mclain SWING SAW OPERATOR Work Phone: [facility] 05-24-2023 13:10-0500 Body weight 64.41 kg Frantz Mclain SWING SAW OPERATOR Work Phone: [facility] 05-24-2023 13:10-0500 Diastolic blood pressure 70 mm[Hg] Frantz Mclain SWING SAW OPERATOR Work Phone: [facility] 05-24-2023 13:10-0500 Heart rate 78 /min Frantz Mclain SWING SAW OPERATOR Work Phone: [facility] 05-24-2023 13:10-0500 SaO2% (BldA) [Mass fraction] 99 % Frantz Mclain SWING SAW OPERATOR Work Phone: [facility] 05-24-2023 13:10-0500 Systolic blood pressure 110 mm[Hg] Frantz Mclain SWING SAW OPERATOR Work Phone: [facility] Healthcare Encounters Encounter Date Encounter Type Care Provider Facility Start: 06-29-2023 End: 06-29-2023 ambulatory [facility] Start: 06-29-2023 End: 06-29-2023 Office outpatient visit 25 minutes [facility] PROBATION OFFICER-SUPERVISOR [employer] Work Phone: [facility] Comment on above: Atherosclerosis of n ative coronary artery of sioux heart with angina pectoris ([facility]) (Primary Dx); Mixed hyperlipidemia Start: 06-28-2023 Telephone encounter Izzy Galvez MA [facility] Comment on above: Appointment Start: 05-24-2023 End: 05-24-2023 ambulatory FRANTZ MCLAIN Not Available Start: 05-24-2023 Bamboo flowsheet Frantz Mclain SWING SAW OPERATOR Work Phone: [facility] Start: 05-24-2023 Bamboo flowsheet Frantz Mclain SWING SAW OPERATOR Work Phone: [facility] Start: 05-24-2023 Refill Rosy olpez PROBATION OFFICER-SUPERVISOR [employer] Work Phone: [facility] Comment on above: Med Refill Start: 05-24-2023 End: 05-24-2023 Office outpatient visit 15 minutes Frantz Mclain SWING SAW OPERATOR Work Phone: [facility] Comment on above: Viral URI (Primary D x) Start: 04-06-2023 End: 04-06-2023 ambulatory MITRA PEREZ Not Available Procedures Date Procedure Procedure Detail Performing Clinician Start: 06-29-2023 Ecg routine ecg w/le ast 12 lds w/i&r Kate Amaral PROBATION OFFICER-SUPERVISOR [employer] Work Phone: Start: 06-29-2023 Follow-up visit Follow-up KATE AMARAL Start: 02-02-2023 Microscopic observat ion [Identifier] in Cervix by Cyto stain Frantz Mclain SWING SAW OPERATOR Work Phone: Start: 06-08-2022 Mammography Frantz Petrona barry SWING SAW OPERATOR Work Phone: Plan of Treatment Date Care Activity Detail Author Start: 02-28-2030 DTaP,Tdap and Td Vaccines (8 - Td or Tdap) DTaP,Tdap and Td Vaccines (8 - Td or Tdap) [facility] Start: 02-03-2028 Screening for malignant neoplasm of cervix [facility] Start: 02-02-2026 Screening for malignant neoplasm of cervix Pap Smear [facility] Start: 06-28-2024 Adult BMI Screening Adult BMI Screen ing [facility] Start: 06-28-2024 Tobacco Screening Tobacco Screening [facility] Start: 09-29-2023 End: 06-28-2024 Lipid panel Lipid panel Lab Routine Atherosclerosis of sioux coronary artery of sioux heart with angina pectoris ([facility]) Mixed hyperlipidemia Expected: 09/29/2023 (Approximate), Expires: 06/28/2024 [employer] Work Phone: Comment on above: Expected: 09/29/2023 (Approximate), Expires: 06/28/2024 Start: 06-29-2023 End: 06-29-2023 Patient encounter procedure 06/29/2023 11:00 AM EDT Office Visit [facility] [address] [place] [address] [address] [place] [address] Kate Amaral, PROBATION OFFICER-SUPERVISOR [employer] [address] [place] [address] [facility] Start: 06-17-2023 Adult BMI Screening Adult BMI Screen ing [facility] Start: 06-17-2023 Tobacco Screening Tobacco Screening [facility] Start: 06-15-2023 End: 06-15-2023 Patient encounter procedure 06/15/2023 8:40 AM EST Consult [facility] [address] [place] [id number] Mitra Perez, DO [address] [place] [address] [facility] Start: 06-08-2023 Screening for malignant neoplasm of breast Mammogram [facility] Healthcare Start: 05-24-2023 End: 05-24-2023 Patient encounter procedure 05/24/2023 1:30 PM EST Office Visit [facility] [address] [place] [phone] Frantz Mclain NP [address] [place] [address] Arrived [facility] Comment on above: Arrived Start: 12-11-2022 COVID-19 Vaccine ( season) COVID-19 Vaccine ( season) [facility] Start: 12-11-2022 Influenza vaccination Influenza Vacc ine [facility] Start: 1995 Screening for malignant neoplasm of cervix Pap Smear [facility] Start: 1986 Depression Screening Depression Scre ening [facility] Start: 1974 Screening for malignant neoplasm of colon [facility] Immunizations Immunization Date Immunization Notes Care Provider Fa cility 04-16-2023 zoster vaccine recombinant Frantz Mclain SWING SAW OPERATOR Work Phone: [facility] 01-17-2023 Pneumococcal Conjuga te PCV 20 Frantz Mclain SWING SAW OPERATOR Work Phone: [facility] 01-17-2023 zoster vaccine recombinant Frantz Mclain SWING SAW OPERATOR Work Phone: [facility] 12-11-2022 influenza, injectabl e, quadrivalent, preservative free Frantz Kampfer SWING SAW OPERATOR Work Phone: [facility] 01-30-2022 influenza, injectabl e, quadrivalent, contains preservative Frantz Kampfer SWING SAW OPERATOR Work Phone: [facility] 01-30-2022 influenza virus vaccine, unspecified formulation Rosy Servin PROBATION OFFICER-SUPERVISOR [employer] Work Phone: [facility] 01-05-2021 influenza, injectabl e, quadrivalent, preservative free Frantz Kampfer SWING SAW OPERATOR Work Phone: [facility] 02-29-2020 tetanus toxoid, redu bassam diphtheria toxoid, and acellular pertussis vaccine, adsorbed Frantz Kampfer SWING SAW OPERATOR Work Phone: [facility] 01-25-2020 influenza, injectabl e, quadrivalent, preservative free Frantz Kampfer SWING SAW OPERATOR Work Phone: [facility] 02-03-2019 influenza, injectabl e, quadrivalent, contains preservative Frantz Kampfer SWING SAW OPERATOR Work Phone: [facility] 01-20-2012 tetanus toxoid, redu bassam diphtheria toxoid, and acellular pertussis vaccine, adsorbed Frantz Kampfer SWING SAW OPERATOR Work Phone: [facility] 11-19-2006 hepatitis B vaccine, adult dosage Frantz Kampfer SWING SAW OPERATOR Work Phone: [facility] 09-21-2006 hepatitis B vaccine, adult dosage Frantz Kampfer SWING SAW OPERATOR Work Phone: [facility] 07-29-2006 hepatitis B vaccine, adult dosage Frantz Kampfer SWING SAW OPERATOR Work Phone: [facility] 07-29-2006 measles, mumps and rubella virus vaccine Frantz Kampfer SWING SAW OPERATOR Work Phone: [facility] 07-29-2006 tetanus toxoid, adsorbed Frantz Kampfer SWING SAW OPERATOR Work Phone: [facility] 12-21-1978 diphtheria, tetanus toxoids and acellular pertussis vaccine, unspecified formulation Frantz Kampfer SWING SAW OPERATOR Work Phone: [facility] 10-23-1975 diphtheria, tetanus toxoids and acellular pertussis vaccine, unspecified formulation Frantz Kampfer SWING SAW OPERATOR Work Phone: [facility] 10-23-1975 measles and rubella virus vaccine Frantz Kampfer SWING SAW OPERATOR Work Phone: [facility] 10-23-1975 poliovirus vaccine, unspecified formulation Frantz Kampfer SWING SAW OPERATOR Work Phone: [facility] 05-21-1975 diphtheria, tetanus toxoids and acellular pertussis vaccine, unspecified formulation Frantz Kampfer SWING SAW OPERATOR Work Phone: [facility] 05-21-1975 poliovirus vaccine, unspecified formulation Frantz Kampfer SWING SAW OPERATOR Work Phone: [facility] 1974 diphtheria, tetanus toxoids and acellular pertussis vaccine, unspecified formulation Frantz Kampfer SWING SAW OPERATOR Work Phone: [facility] 1974 poliovirus vaccine, unspecified formulation Frantz Kampfer SWING SAW OPERATOR Work Phone: [facility] 1974 diphtheria, tetanus toxoids and acellular pertussis vaccine, unspecified formulation Frantz Kampfer SWING SAW OPERATOR Work Phone: [facility] 1974 poliovirus vaccine, unspecified formulation Frantzcarlos Slaterpfer SWING SAW OPERATOR Work Phone: [facility] Payers Date Payer Category Payer Managed Care HMO (unspecified) [employer] HMO [employer] HMO [id number] 2020-Present [address] [place] [address] HMO [id number] 2019 Unknown [id number] 2019 Unknown [employer] HMO/FLEX/EMPLOYER SELECT [id number] 2019-Present [phone] [address] [place] [address] [id number] 1974 Unknown [id number] 1974 Unknown [id number] 1974 Unknown [id number] Social History Date Type Detail Facility [...] caffeine: 2-3 cups per day coffee, soda [facility] Start: 1975 Sex Assigned At Not on file N [facility] Healthcare Start: 06-16-2022 End: 06-29-2023 Alcohol intake Current non-drinker of alcohol (finding) [facility] Childcare Unknown [facility] Clinical Notes 05-24-2023 to 06-29-2023 Kate Amaral, [facility] - 06/29/2023 11:00 AM EDTTelephone Encounter - Izzy Bradford, [facility] - 06/28/2023 11:57 AM EDTTelephone Encounter - Izzy Bradford [facility] - 06/28/2023 11:57 AM EDT Note Date & Type Note Facility 06-29-2023 History of Presen t illness Narrative Yumiko March Date of visit: 06/29/2023 Date of : 1975 Age: 48 y.o. Patient Active Problem List Diagnosis Atherosclerotic heart disease of sioux coronary artery with angina pectoris (CMS-HCC) Mixed [...] the morning and 1 tablet before bedtime. fszek-ix-6-avu-iku-orawfam-ast [id number] mg capsule Take by mouth daily. metoprolol [...] no discontinued medications. IMPRESSIONS/PLAN 1. Atherosclerosis of sioux coronary artery of sioux heart with angina pectoris ([facility]) - POCT EKG / nonischemic - Lipid [...] Physician: Maureen De Jesus MD [address] [place] [address] FRANCINE Lacy 06/29/23 1123 documented in this encounter [facility] 06-28-2023 Miscellaneous Notes Formattin g of this note might be different from the original. Called patient to remind them to bring their most current copy of their medication list with them to their appt. Patient verbalizes understanding. documented in this encounter [facility] 06-28-2023 Telephone encount er Note Called patient to remind them to bring their most current copy of their medication list with them to their appt. Patient verbalizes understanding. [facility] 05-24-2023 History of Presen t illness Narrative [...] markedly worsening symptoms. documented in this encounter [facility] 05-24-2023 Miscellaneous Notes Formattin g of this note might be different from the original. Please sign and route. Thank you CRISTAL 06/16/22 Pt will need annual appointment please. Letter mailed. documented in this encounter [facility] 05-24-2023 Telephone encount er Note Please sign and route. Thank you CRISTAL 06/16/22 Pt will need annual appointment please. Letter mailed. [facility] Evaluation note Diagnosis Viral URI- Primary Acute upper respiratory infections of unspecified site [facility] Diagnosis Atherosclerosis of sioux coronary artery of sioux heart with angina pectoris ([facility])- Primary Mixed hyperlipidemia [facility] in [facility] SystemInstructionsNot on filedocumented in this encounter [facility] [employer] SystemInstructionsNot on filedocumented in this encounter [facility] [employer] SystemInstructionsNot on filedocumented in this encounter [facility] Summary Purpose Family History No Family History Records FoundNo Family History Records FoundNo Family History Records Found Advance Directives No Advanced Directives Records FoundLatest Code Status on File Code Status Date Activated Date Inactivated Comments Full Code 09/15/2016 4:44 PM 09/16/2016 6:41 PM Additional Source Comments INFORMATION SOURCE (unrecogn ized section and content) DATE CREATED AUTHOR 06/13/2022 [facility] dical Specialist DATE CREATED AUTHOR AUTHOR'S ORGANIZ ATION 05/25/2023 [facility] dical Specialists EPIC DATE CREATED AUTHOR AUTHOR'S ORGANIZ ATION 06/30/2023 [facility] Care Teams (unrecognized sec tion and content) Spreader Operator Automatic Relationship Specialty Start Date End Date Maureen De Jesus MD [address] [place] [address] PCP - General Family Medicine 08/18/22 Spreader Operator Automatic Relationship Specialty Start Date End Date Maureen De Jesus MD [address] [place] [address] PCP - General Family Medicine 08/18/22 Spreader Operator Automatic Relationship Specialty Start Date End Date Maureen De Jesus MD [address] [place] [address] PCP - General Family Medicine 09/15/16 Spreader Operator Automatic Relationship Specialty Start Date End Date Maureen De Jesus MD [address] [place] [address] PCP - General Family Medicine 09/15/16 Reason [...] BE BASED ON THE PRIMARY CLINICAL RECORDS. [facility] [employer] [facility]. provides no warranty or guarantee of the accuracy or completeness of information in this document.
[2023-07-15 11:22] LABS: Basophils Absolute Auto 0.1 10^3/uL (0.0-0.1); Basophils Percent Auto 0.6 % (0.2-2.0); Eosinophils Absolute Auto 0.2 10^3/uL (0.0-0.7); Eosinophils Percent Auto 1.8 % (0.9-7.0); Hematocrit 39.4 % (36.0-48.0); Hemoglobin 12.3 g/dL (12.0-16.0); Immature Granulocytes Abs Auto 0.03 10^3/uL (0.00-0.03); Immature Granulocytes Pct Auto 0.3 % (0.0-0.5); Lymphocytes Absolute Auto 2.3 10^3/uL (1.2-3.8); Lymphocytes Percent Auto 25.8 % (20.5-60.0); Mean Corpuscular HGB Conc 31.2 g/dL (29.9-35.2); Mean Corpuscular Hemoglobin 26.9 pg (26.7-34.0); Mean Corpuscular Volume 86.2 fL (81.0-99.0); Monocytes Absolute Auto 0.7 10^3/uL (0.3-0.8); Neutrophils Absolute Auto 5.7 10^3/uL (1.4-6.5); Neutrophils Percent Auto 63.5 % (43.0-75.0); Platelet Count 299 10^3/uL (150-450); Red Blood Count 4.57 10^6/uL (4.20-5.40); Red Cell Distribution Width 13.2 % (11.0-15.0)
[2023-07-15 11:47] LABS: HCG Quantitative <1 mIU/mL
[2023-07-15] MEDS: LACTATED RINGER'S SOLUTION 1,000 ML 50 ML IV ×2 (11:53→13:18)
[2023-07-15] MEDS: CEFAZOLIN SODIUM/DEXTROSE,ISO 1 GM/50 ML IV.SOLN IV (12:32)
--- NOTE | 2023-07-15 14:50 | PM.ONB ---
Brief Operative Note Date of procedure: 07/15/23 Pre-op diagnosis general: pelvic pain, dub, uterine fibroid, enlarged uterus, dyspareunia Post-op diagnosis: same as pre-op Procedure: NAME OF PROCEDURE: ? Robotic assisted laparoscopic hysterectomy with cystoscopy findings-enlarged uterus, endometriosis of rt ovary, large uterine fibroid PROCEDURE:? The patient was taken back to the operating room, where she was prepped and draped in the normal sterile fashion after being placed in the dorsal lithotomy position.? Patient?s anesthesia was found to be adequate.? Surgical timeout was performed using two patient identifiers.? SCDs were on and in place.? Two grams of Ancef were given prior to the surgery.? Sterile Nguyen catheter was inserted.? Standard size VCare was secured to the uterine cervix and the surgeon changed gloves.? Attention then was turned to the patient's abdomen, where a supraumbilical incision was then made.? Two S retractors were used to identify the patient?s fascia.? The fascia was then tented up using Karmen clamps and the patient?s fascia was incised sharply.? Patient?s abdomen was identified and entered bluntly.? The patient had the trocar placed and a pneumoperitoneum was obtained.? Approximately 4 liters of CO2 gas was used.? The camera was then placed through the trocar.? At this time, two robot trocars were placed in the patient?s left and right side, two hand widths from the midline, and this was placed under direct visualization.? Please note absent tubes were seen. The uterine ovarian ligament was identified and transected and ligated using the vessel sealer? The vessel sealer was carried down serially to the broad ligament, to the area of the bladder flap, which was then created anteriorly, and the uterine arteries were skeletonized and sealed using the vessel sealer.? The colpotomy was made using the monopolar cautery on cut, and this was carried circumferentially, posteriorly to anteriorly, until the uterus was amputated.? The specimen was then removed intact through the vagina, without difficulty.? The vagina was then closed using two running V-Loc in a non-lock fashion.? The robot was undocked.? The abdomen was desufflated.? The skin defects were closed using 4-0 Vicryl.? Please note, the fascia was closed using 0 Vicryl.? Sponge, lap and needle counts were correct x2.? Patient was taken to recovery room in stable condition.? The patient was awakened by Anesthesia first.? Patient tolerated procedure well.?? Anesthesia: RHIANNA Surgeon: Ronny Perez Data Recovery Planner: Leilani Padron Estimated blood loss (mL): 50 Pathology: other (uterus and cervix) Condition: stable Disposition: PACU Urinary Catheter Management Urinary Catheter Management Urethral: Cath placed during this visit: no
[2023-07-15] MEDS: LACTATED RINGER'S SOLUTION 1,000 ML 125 ML IV (15:48)
--- NOTE | 2023-07-15 17:38 | RESP.RT ---
done per nursing
[2023-07-15] MEDS: CEFAZOLIN SODIUM/DEXTROSE,ISO 2 GM/50 ML PIGGYBACK IV (18:32)
[2023-07-15 21:25] LABS: Basophils Percent Auto 0.2 % (0.2-2.0); Eosinophils Percent Auto 0.1 % (0.9-7.0); Hematocrit 35.6 % (36.0-48.0); Hemoglobin 11.3 g/dL (12.0-16.0); Immature Granulocytes Abs Auto 0.09 10^3/uL (0.00-0.03); Immature Granulocytes Pct Auto 0.6 % (0.0-0.5); Lymphocytes Absolute Auto 0.7 10^3/uL (1.2-3.8); Lymphocytes Percent Auto 4.4 % (20.5-60.0); Mean Corpuscular HGB Conc 31.7 g/dL (29.9-35.2); Mean Corpuscular Hemoglobin 27.4 pg (26.7-34.0); Mean Corpuscular Volume 86.4 fL (81.0-99.0); Monocytes Absolute Auto 1.1 10^3/uL (0.3-0.8); Monocytes Percent Auto 6.5 % (1.7-12.0); Neutrophils Absolute Auto 14.3 10^3/uL (1.4-6.5); Neutrophils Percent Auto 88.2 % (43.0-75.0); Platelet Count 263 10^3/uL (150-450); Red Blood Count 4.12 10^6/uL (4.20-5.40); Red Cell Distribution Width 13.2 % (11.0-15.0); White Blood Count 16.2 10^3/uL (4.0-11.0)
[2023-07-15] MEDS: IBUPROFEN 400 MG TABLET 800 MG PO (21:41)
== END 2023-07-15 21:45 | disposition home or self-care (01) ==
LOC: SURGOUT 14:54 → FBC 16:00
PROVIDERS: PCP Family Medicine; Visit Provider Obstetrics & Gynecology
PROC: (CPT 840; principal; 2023-07-15 12:30)
DX: N92.0 Excessive and frequent menstruation with regular cycle (principal); R10.2 Pelvic and perineal pain; N94.6 Dysmenorrhea, unspecified; I25.2 Old myocardial infarction; N93.8 Other specified abnormal uterine and vaginal bleeding; D25.9 Leiomyoma of uterus, unspecified; N94.10 Unspecified dyspareunia; N80.101 Endometriosis of right ovary, unspecified depth; R87.612 Low grade squamous intraepithelial lesion on cytologic smear of cervix (LGSIL); N80.03 Adenomyosis of the uterus; F41.9 Anxiety disorder, unspecified; Z87.891 Personal history of nicotine dependence; Z98.51 Tubal ligation status
CPT/HCPCS: 58570; 36415; 84702; 85025; 88307; 88313; 88341; 88342; 94667; 99999; J1094; J1170; J2704